=== PATIENT | male | born 1960 | race Caucasian/White ===

== ENCOUNTER → 2017-03-12 | Outpatient (CLI) | payer OTHER | END | disposition home or self-care (01) | LOC: MRI 10:37 | DX: M51.36 Other intervertebral disc degeneration, lumbar region (principal); M48.061 Spinal stenosis, lumbar region without neurogenic claudication; M54.16 Radiculopathy, lumbar region; M25.78 Osteophyte, vertebrae | CPT/HCPCS: 72148 ==

== ENCOUNTER 2017-05-04 14:47 | Emergency (ER) | payer OTHER ==
[2017-05-04 15:37] LABS: ADD MAN DIFF? NO
[2017-05-04] MEDS: ONDANSETRON ODT 4 MG TAB.RAPDIS. PO (15:38)
[2017-05-04] MEDS: oxyCODONE/APAP 10/325 1 TAB TABLET PO (15:38)
[2017-05-04 15:48] LABS: BASO # 0.1 x10^3/uL (0.0-0.2); BASO % 0 % (0-3); EOS # 0.1 x10^3/uL (0.0-0.7); EOS % 1 % (0-3); HEMOGLOBIN 13.7 g/dL (13.0-17.5); LYMPH # 3.2 x10^3/uL (1.0-4.8); LYMPH % 27 % (24-48); MEAN CORPUSCULAR HEMOGLOBIN 31 pg (25-35); MEAN CORPUSCULAR HGB CONC 34 g/dL (31-37); MEAN CORPUSCULAR VOLUME 90 fL (79-100); MONO # 0.9 x10^3/uL (0.0-1.1); MONO % 8 % (0-9); NEUT # 7.5 x10^3uL (1.8-7.7); NEUT % 64 % (31-73); PLATELET COUNT 271 x10^3/uL (140-400); RED BLOOD COUNT 4.43 x10^6/uL (4.30-5.70); RED CELL DISTRIBUTION WIDTH 12.4 % (11.5-14.5); WHITE BLOOD COUNT 11.7 x10^3/uL (4.0-11.0)
[2017-05-04 15:53] LABS: ANION GAP 13 (6-14); BILIRUBIN,URINE NEGATIVE (NEG); BLOOD UREA NITROGEN 25 mg/dL (8-26); BUN/CREATININE RATIO 23 (6-20); CALCIUM 9.2 mg/dL (8.5-10.1); CARBON DIOXIDE 27 mmol/L (21-32); CHLORIDE 102 mmol/L (98-107); CLARITY,URINE CLEAR; COLOR,URINE YELLOW; CREATININE 1.1 mg/dL (0.7-1.3); GFR 69.5; GLUCOSE 162 mg/dL (70-99); GLUCOSE,URINE NEGATIVE (NEG); NITRITE,URINE NEGATIVE (NEG); PH,URINE 5.5; POTASSIUM 4.3 mmol/L (3.5-5.1); PROTEIN,URINE NEGATIVE (NEG-TRACE); SODIUM 142 mmol/L (136-145); UROBILINOGEN,URINE 0.2 mg/dL (0.2 mg/dL)
[2017-05-04 16:00] LABS: ALBUMIN 3.3 g/dL (3.4-5.0); ALBUMIN/GLOBULIN RATIO 1.1 (1.0-1.7); ALK PHOS 44 U/L (46-116); ALT (SGPT) 29 U/L (16-63); AST (SGOT) 15 U/L (15-37); LIPASE 98 U/L (73-393); TOTAL BILIRUBIN 0.2 mg/dL (0.2-1.0); TOTAL PROTEIN 6.4 g/dL (6.4-8.2)
[2017-05-04 16:16] LABS: BACTERIA,URINE 0 /HPF (0-FEW); HYALINE CASTS, URINE FEW /HPF; RBC,URINE 0 /HPF (0-2); WBC,URINE 0 /HPF (0-4)
== END 2017-05-04 18:04 | disposition home or self-care (01) ==
LOC: ER 14:47
DX: R10.9 Unspecified abdominal pain (principal); G89.29 Other chronic pain; M54.6 Pain in thoracic spine; J45.909 Unspecified asthma, uncomplicated; E11.9 Type 2 diabetes mellitus without complications; J44.9 Chronic obstructive pulmonary disease, unspecified; Z87.442 Personal history of urinary calculi; Z98.84 Bariatric surgery status
CPT/HCPCS: 36415; 74176; 80053; 81001; 83690; 85025; 85379; 99285-25; Q0162

== ENCOUNTER → 2017-08-07 | Outpatient (CLI) | payer OTHER ==
[~2017-08-07] MED LIST: IOHEXOL 180 MG/ML 10 ML VIAL.; LIDOCAINE 1% PF 2 ML VIAL.; methylPREDNISolone ACETATE 40 MG/ML VIAL.
== END ==
LOC: PNCL 13:47
DX: M50.10 Cervical disc disorder with radiculopathy, unspecified cervical region (principal); M51.16 Intervertebral disc disorders with radiculopathy, lumbar region; M48.061 Spinal stenosis, lumbar region without neurogenic claudication; E11.9 Type 2 diabetes mellitus without complications; I10 Essential (primary) hypertension; J44.9 Chronic obstructive pulmonary disease, unspecified; M19.90 Unspecified osteoarthritis, unspecified site; G89.29 Other chronic pain; Z79.899 Other long term (current) drug therapy; Z98.84 Bariatric surgery status; Z90.49 Acquired absence of other specified parts of digestive tract; Z87.442 Personal history of urinary calculi; Z87.891 Personal history of nicotine dependence
CPT/HCPCS: 62321; J1030; Q9965

== ENCOUNTER → 2017-08-21 | Outpatient (CLI) | payer OTHER ==
[~2017-08-21] MED LIST changes: +methylPREDNISolone ACETATE 80 MG/ML VIAL.
== END | disposition home or self-care (01) ==
LOC: PNCL 09:14
DX: M50.123 Cervical disc disorder at C6-C7 level with radiculopathy (principal); M48.061 Spinal stenosis, lumbar region without neurogenic claudication; M51.16 Intervertebral disc disorders with radiculopathy, lumbar region
CPT/HCPCS: 62321; J1030; J1040; Q9965

== ENCOUNTER → 2017-09-04 | Outpatient (CLI) | payer OTHER | LOC: PNCL 09:04 | DX: M48.061 Spinal stenosis, lumbar region without neurogenic claudication (principal); M51.16 Intervertebral disc disorders with radiculopathy, lumbar region; M50.123 Cervical disc disorder at C6-C7 level with radiculopathy; J44.9 Chronic obstructive pulmonary disease, unspecified; I10 Essential (primary) hypertension; E11.9 Type 2 diabetes mellitus without complications; M19.90 Unspecified osteoarthritis, unspecified site; Z87.442 Personal history of urinary calculi; Z79.1 Long term (current) use of non-steroidal anti-inflammatories (NSAID); Z87.891 Personal history of nicotine dependence; Z98.84 Bariatric surgery status; Z90.49 Acquired absence of other specified parts of digestive tract; Z79.899 Other long term (current) drug therapy; Z79.51 Long term (current) use of inhaled steroids | CPT/HCPCS: 62323; J1030; J1040; Q9965 ==

== ENCOUNTER → 2017-09-11 | Outpatient (CLI) | payer OTHER | END | disposition home or self-care (01) | LOC: PNCL 10:54 | DX: M51.16 Intervertebral disc disorders with radiculopathy, lumbar region (principal); M48.02 Spinal stenosis, cervical region; M48.061 Spinal stenosis, lumbar region without neurogenic claudication | CPT/HCPCS: 99212 ==

== ENCOUNTER → 2017-09-25 | Outpatient (CLI) | payer OTHER | END | disposition home or self-care (01) | LOC: KCIC MRI 07:44 | DX: M51.16 Intervertebral disc disorders with radiculopathy, lumbar region (principal); M48.061 Spinal stenosis, lumbar region without neurogenic claudication; M50.122 Cervical disc disorder at C5-C6 level with radiculopathy; M48.02 Spinal stenosis, cervical region; Z79.899 Other long term (current) drug therapy; Z90.49 Acquired absence of other specified parts of digestive tract; I10 Essential (primary) hypertension; Z79.51 Long term (current) use of inhaled steroids; Z87.891 Personal history of nicotine dependence; Z87.442 Personal history of urinary calculi; E11.9 Type 2 diabetes mellitus without complications; Z98.84 Bariatric surgery status; J44.9 Chronic obstructive pulmonary disease, unspecified; Z79.1 Long term (current) use of non-steroidal anti-inflammatories (NSAID); M19.90 Unspecified osteoarthritis, unspecified site; Z79.84 Long term (current) use of oral hypoglycemic drugs | CPT/HCPCS: 72141; 72148 ==

== ENCOUNTER → 2017-10-15 | Outpatient (CLI) | payer OTHER ==
[2017-05-04 17:00] VITALS: BP 150/73
[~2017-10-15] MED LIST changes: +ACET-706 PO; +BUDE10.2 IH; +CALC-483 PO; +CELE200C PO; -IOHEXOL 180 MG/ML 10 ML VIAL.; -LIDOCAINE 1% PF 2 ML VIAL.; +LOSA1TAB25 PO; +METF500T5 PO; +PROAIR HFA8.5 GM INH; -methylPREDNISolone ACETATE 40 MG/ML VIAL.; -methylPREDNISolone ACETATE 80 MG/ML VIAL.
--- NOTE | 2017-10-15 21:58 | PAIN ---
DATE OF SERVICE: 10/15/2017 PROGRESS NOTE FOR PAIN CLINIC DIAGNOSES: 1. Cervical radiculopathy with cervical degenerative disk disease and cervical spinal stenosis. 2. Lumbar radiculopathy with lumbar degenerative disk disease and lumbar spinal stenosis. HISTORY OF PRESENT ILLNESS: The patient is a 57-year-old male who returns for followup status post lumbar epidural steroid injections as well as cervical epidural steroid injections with good initial results, but pain returning now significantly in the low back and right leg. The patient reports his neck is doing much better. He has had physical therapy recently, which did not help his back much with increasing radiating pain in the anterior lateral thigh, lateral anterior medial thigh and posterior gluteus on the right side. The patient reports he is becoming more weak. He has been stumbling with easy fatigability. The right leg is sharp, shooting pain, burning, constant, rated at 8 on a scale of 10 at its worst, 4 on average and 3 at its least. The patient did have MRI scan performed on 09/25/2017 showing circumferential disk bulge, L3-L4, left foraminal protrusion L4-L5 shows right foraminal disk protrusion, L5-S1 showing far right lateral disk protrusion as well with moderate bilateral neural foraminal stenosis at L4-L5 and L5-S1. The patient again has significantly increased pain and weakness in the right lower extremity. We tried gabapentin as well as Lyrica. He had significant side effects of each of these with intolerance to the medications, although the Lyrica did help slightly. PHYSICAL EXAMINATION: VITAL SIGNS: Today, the patient's blood pressure 143/109, pulse 101, respirations 20, temperature is 98.3 degrees Fahrenheit, height is 5 feet 7 inches, weight is 182 pounds. GENERAL: The patient is awake, alert, oriented, appropriate, very pleasant demeanor. HEENT: Head shows normocephalic, atraumatic. Extraocular movements intact and symmetrical. Oral cavity shows moist and pink. Dentition is intact. NECK: Shows anterior throat supple without palpable lymphadenopathy noted. Swallow reflex symmetrical. CHEST: Shows normal with inspection. Breath sounds clear to auscultation bilaterally. HEART: Shows S1, S2 clear. No murmurs auscultated. ABDOMEN: Soft, nontender, nondistended. No palpable organomegaly. There is no rebound or guarding demonstrated. BACK: Shows spine grossly in the midline. Cervical paraspinous muscle shows symmetrical on inspection, on palpation shows some mild tenderness only diffusely. The patient has full rotational motion of cervical spine both laterally as well as extension and flexion without difficulty. Lower back shows slight flattening of lumbar lordotic curvature. Lumbar paraspinous muscle shows symmetrical on inspection, with palpation shows some moderate tenderness in the inferior aspect of the lumbar paraspinous muscles bilaterally, but only in the inferior aspect. The patient has good rotational motion of lumbar spine without significant increase in pain. Good extension and forward flexion without difficulty. No tenderness over the sacrum or sacroiliac regions. EXTREMITIES: The patient's lower extremities show deep tendon reflexes 1+ in the patellar and tendo calcaneus tendons. Motor exam is approximately 4 on a scale of 5, but equal and symmetrical with dorsiflexion and extension bilaterally. Peripheral pulses are 1+ posterior tibial. Options were discussed with the patient. The patient's old chart was reviewed as his current medication regimen updated. Current review of systems updated today as well and we will recommend surgical evaluation. The patient's insurance will need preauthorization and clearance for surgical evaluation, but I feel that this would be the next step to get a surgical opinion to see if there is anything that can be performed with the L4-L5 and L5-S1 right-sided disk protrusions. If not a surgical candidate, may be a good candidate for spinal cord stimulator trial in the future as well. The patient was given a prescription for one-time fill for Tylenol No. 4 by his request. The patient was informed that this would not be refilled at this office and he understands. The patient was given instruction as well as side effects to be aware of with the medication. The patient is scheduled to see his primary physician in the next week. We will ask for recommendations on surgical evaluation regarding the patient's insurance providers who would be accepting it. IBETH PRYOR MD DR: TANIA/vivienne JOB#: [id number] / [id number] YESIAC Jurado MD
== END | disposition home or self-care (01) ==
LOC: PNCL 08:18
PROVIDERS: ATTEND Anesthesiology
DX: M50.10 Cervical disc disorder with radiculopathy, unspecified cervical region (principal); M48.02 Spinal stenosis, cervical region; M51.16 Intervertebral disc disorders with radiculopathy, lumbar region; M48.061 Spinal stenosis, lumbar region without neurogenic claudication; I10 Essential (primary) hypertension; E11.9 Type 2 diabetes mellitus without complications; J44.9 Chronic obstructive pulmonary disease, unspecified; Z87.891 Personal history of nicotine dependence; Z90.49 Acquired absence of other specified parts of digestive tract
CPT/HCPCS: 99212

== ENCOUNTER 2018-06-03 07:07 | Emergency (ER) | payer OTHER ==
[~2018-06-03] VITALS: Ht 167.6 cm; Wt 77.6 kg
[~2018-06-03 07:07] MED LIST changes: +ALBU2.5V8 INH; +METF500T16 PO; -METF500T5 PO; -PROAIR HFA8.5 GM INH
[2018-06-03] MEDS ORDERED: IV NORMAL SALINE 1000ML BAG 1,000 ML IV ONE (07:30)
[2018-06-03] MEDS ORDERED: METOCLOPRAMIDE HCL 10 MG/2 ML VIAL. IV ONE (07:45)
[2018-06-03] MEDS ORDERED: KETOROLAC 15 MG/ML VIAL. IV ONE (07:45)
[2018-06-03] MEDS ORDERED: IPRATRPIUM/ALBUTEROL 0.5/2.5MG 3 ML NEBU. NEB ONE (07:45)
--- NOTE | 2018-06-03 08:02 | PHYS DOC ---
Past Medical History Past Medical History: Asthma, COPD, Diabetes-Type II, Kidney Stone, Other Additional Past Medical Histor: DDD Past Surgical History: Cholecystectomy, Other Additional Past Surgical Histo: gastric bypass Smoking: Quit Greater Than 1 Year Alcohol Use: None Drug Use: None Adult General Chief Complaint Chief Complaint: FLANK PAIN HPI HPI Patient is a 58 year old male who presents with left flank pain. Patient states that he developed the pain around ten o'clock last night and it has been getting progressively worse since then. Patient states that he has a history of kidney stones and his current pain feels similar to the pain he has experienced with kidney stones in the past. Patient describes the pain as constant, intermittent in intensity, and stabbing in nature. Patient states that the pain is worse with standing and sitting and is mildly improved with laying down. Patient reports associated nausea for which he took a dose of Ondansetron last night with mild relief. Denies vomiting. Patient also reports a history of asthma and states that he is experiencing some chest tightness and wheezing this morning. Patient reports that this time of year is typical for his asthma to flare up. Review of Systems Review of Systems Constitutional: Denies fever or chills Eyes: Denies change in visual acuity or eye pain HENT: Denies nasal congestion or sore throat Respiratory: Denies cough. Reports wheezing. Cardiovascular: Reports chest tightness. Denies palpitations. GI: Denies abdominal pain vomiting, or diarrhea : Denies dysuria or hematuria Musculoskeletal: Denies joint pain. Reports chronic back pain. Integument: Denies rash or skin lesions Neurologic: Denies focal weakness or sensory changes Complete systems were reviewed and found to be within normal limits, except as documented in this note. Current Medications Current Medications Current Medications Medications (Trade) Dose Ordered Sig/Jesse Start Time Stop Time Status Last Admin Dose Admin Albuterol/ Ipratropium (Duoneb) 3 ml 1X ONCE 06/03/18 07:45 06/03/18 07:46 DC 06/03/18 08:30 3 ML Fentanyl Citrate (Fentanyl 2ml Vial) 50 mcg 1X ONCE 06/03/18 08:30 06/03/18 08:31 DC 06/03/18 09:20 50 MCG Ketorolac Tromethamine (Toradol 15mg Vial) 15 mg 1X ONCE 06/03/18 07:45 06/03/18 07:46 DC 06/03/18 08:06 15 MG Metoclopramide HCl (Reglan Vial) 10 mg 1X ONCE 06/03/18 07:45 06/03/18 07:46 DC 06/03/18 08:11 10 MG Sodium Chloride 1,000 ml @ 1,000 mls/hr 1X ONCE 06/03/18 07:30 06/03/18 08:29 DC 06/03/18 08:07 1,000 MLS/HR Allergies Allergies Allergies Coded Allergies Type Severity Reaction Last Updated Verified No Known Drug Allergies 10/24/15 No Physical Exam Physical Exam Constitutional: Well developed, well nourished, no acute distress, non-toxic appearance. HENT: Normocephalic, atraumatic, bilateral external ears normal, oropharynx moist, nose normal. Eyes: PERRLA, conjunctiva normal, no discharge. Neck: Normal range of motion, supple, no stridor. Cardiovascular:Heart rate regular rhythm, no murmur Lungs & Thorax: Mild diffuse wheezing throughout all lung astorga. No respiratory distress. Abdomen: Soft, no tenderness on palpation. Skin: Warm, dry, no rash. Back: No midline tenderness. Left CVA tenderness on palpation. Extremities: No tenderness, ROM intact, no edema of lower extremities. Neurologic: Alert and oriented X3, no focal deficits noted. Psychologic: Affect normal. Speech normal. Current Patient Data Vital Signs Vital Signs Date Time Temp Pulse Resp B/P (MAP) Pulse Ox O2 Delivery O2 Flow Rate FiO2 06/03/18 09:20 16 98 Room Air 06/03/18 09:15 72 112/58 (76) 06/03/18 07:09 98.0 98.0 Lab Values Laboratory Tests Test 06/03/18 07:25 White Blood Count 6.6 x10^3/uL (4.0-11.0) Red Blood Count 4.35 x10^6/uL (4.30-5.70) Hemoglobin 13.5 g/dL (13.0-17.5) Hematocrit 40.3 % (39.0-53.0) Mean Corpuscular Volume 93 fL (79-100) Mean Corpuscular Hemoglobin 31 pg (25-35) Mean Corpuscular Hemoglobin Concent 33 g/dL (31-37) Red Cell Distribution Width 13.8 % (11.5-14.5) Platelet Count 245 x10^3/uL (140-400) Neutrophils (%) (Auto) 48 % (31-73) Lymphocytes (%) (Auto) 38 % (24-48) Monocytes (%) (Auto) 10 % (0-9) H Eosinophils (%) (Auto) 4 % (0-3) H Basophils (%) (Auto) 0 % (0-3) Neutrophils # (Auto) 3.2 x10^3uL (1.8-7.7) Lymphocytes # (Auto) 2.5 x10^3/uL (1.0-4.8) Monocytes # (Auto) 0.6 x10^3/uL (0.0-1.1) Eosinophils # (Auto) 0.3 x10^3/uL (0.0-0.7) Basophils # (Auto) 0.0 x10^3/uL (0.0-0.2) Urine Collection Type Void Urine Color Yellow Urine Clarity Clear Urine pH 6.0 Urine Specific [place] 1.020 Urine Protein Negative mg/dL (NEG-TRACE) Urine Glucose (UA) Negative mg/dL (NEG) Urine Ketones (Stick) Negative mg/dL (NEG) Urine Blood Negative (NEG) Urine Nitrite Negative (NEG) Urine Bilirubin Negative (NEG) Urine Urobilinogen Dipstick 0.2 mg/dL (0.2 mg/dL) Urine Leukocyte Esterase Negative (NEG) Urine RBC Rare /HPF (0-2) Urine WBC Rare /HPF (0-4) Urine Squamous Epithelial Cells None /LPF Urine Bacteria Few /HPF (0-FEW) Urine Mucus Mod /LPF Sodium Level 141 mmol/L (136-145) Potassium Level 4.2 mmol/L (3.5-5.1) Chloride Level 105 mmol/L (98-107) Carbon Dioxide Level 28 mmol/L (21-32) Anion Gap 8 (6-14) Blood Urea Nitrogen 16 mg/dL (8-26) Creatinine 0.9 mg/dL (0.7-1.3) Estimated GFR (Cockcroft-Gault) 87.3 BUN/Creatinine Ratio 18 (6-20) Glucose Level 140 mg/dL (70-99) H Calcium Level 8.7 mg/dL (8.5-10.1) Magnesium Level 1.5 mg/dL (1.8-2.4) L Total Bilirubin 0.5 mg/dL (0.2-1.0) Aspartate Amino Transferase (AST) 18 U/L (15-37) Alanine Aminotransferase (ALT) 27 U/L (16-63) Alkaline Phosphatase 42 U/L (46-116) L Total Protein 6.3 g/dL (6.4-8.2) L Albumin 3.5 g/dL (3.4-5.0) Albumin/Globulin Ratio 1.3 (1.0-1.7) Lipase 149 U/L (73-393) Laboratory Tests 06/03/18 07:25 Laboratory Tests 06/03/18 07:25 EKG EKG [] Radiology/Procedures Radiology/Procedures PROCEDURE: CT ABDOMEN PELVIS WO CONTRAST Examination: CT ABDOMEN PELVIS WO CONTRAST History: L FLANK PAIN H/O STONES PRE SENT Comparison/Correlation: 05/04/2017 CT abdomen and pelvis without contrast Findings: Axial images of the abdomen and pelvis were obtained without contrast sagittal and coronal reformatted images provided. Visualized lung bases are clear. Suture material is noted involving the stomach. Cholecystectomy noted. Liver, spleen, pancreas, and adrenal glands are normal. Suture material involves left upper quadrant small bowel. No bowel obstruction or extraluminal gas. Appendix is normal. Diverticulosis is present. No ascites or pelvic free fluid. Bilateral perinephric stranding is again seen. No radiopaque collecting system calculi. Moderate L3-4 disc space narrowing is present. Spurring is noted. Small umbilical hernia contains omental fat. Urinary bladder is mostly decompressed. Impression: No radiopaque collecting system calculi or evidence of obstruction. Diverticulosis is present without findings of acute inflammation. PQRS Compliance Statement: One or more of the following individualized dose reduction techniques were utilized for this examination: 1. Automated exposure control 2. Adjustment of the mA and/or kV according to patient size 3. Use of iterative reconstruction technique Electronically signed by: Wing Hudson MD (06/03/2018 8:30 AM) [id number] Course & Med Decision Making Course & Med Decision Making Patient is a 58 year old male who presents for evaluation of flank pain. Patient treated with a duoneb, fluids, Ketorolac, and Reglan in the ED. Pertinent Labs and Imaging studies reviewed. (See chart for details). CT abdomen /pelvis is negative for stone. Patient denies pleuritic pain and calf tenderness. Patient is not tachycardic. No swelling of the lower extremities are noted on physical exam. On reexamination patient is feeling better. Patient stable for discharge with outpatient follow-up with PCP. Discussed findings and plan with patient and family, who acknowledge understanding and agreement. Dragon Disclaimer Dragon Disclaimer This electronic medical record was generated, in whole or in part, using a voice recognition dictation system. Departure Departure Impression: Primary Impression: Left flank pain Disposition: 01 HOME, SELF-CARE Condition: STABLE Referrals: YESICA JANSEN MD (PCP) Patient Instructions: Flank Pain, [id number] TONI QUESADA DO Jun 03, 2018 08:02
[2018-06-03 08:04] LABS: BASO % 0 % (0-3); EOS # 0.3 x10^3/uL (0.0-0.7); EOS % 4 % (0-3); HEMATOCRIT 40.3 % (39.0-53.0); HEMOGLOBIN 13.5 g/dL (13.0-17.5); LYMPH # 2.5 x10^3/uL (1.0-4.8); LYMPH % 38 % (24-48); MEAN CORPUSCULAR HEMOGLOBIN 31 pg (25-35); MEAN CORPUSCULAR HGB CONC 33 g/dL (31-37); MEAN CORPUSCULAR VOLUME 93 fL (79-100); MONO # 0.6 x10^3/uL (0.0-1.1); MONO % 10 % (0-9); NEUT # 3.2 x10^3uL (1.8-7.7); NEUT % 48 % (31-73); PLATELET COUNT 245 x10^3/uL (140-400); RED BLOOD COUNT 4.35 x10^6/uL (4.30-5.70); RED CELL DISTRIBUTION WIDTH 13.8 % (11.5-14.5); WHITE BLOOD COUNT 6.6 x10^3/uL (4.0-11.0)
[2018-06-03 08:16] LABS: BILIRUBIN,URINE NEGATIVE (NEG); CLARITY,URINE CLEAR; COLOR,URINE YELLOW; NITRITE,URINE NEGATIVE (NEG); PROTEIN,URINE NEGATIVE (NEG-TRACE); UROBILINOGEN,URINE 0.2 mg/dL (0.2 mg/dL)
[2018-06-03 08:20] LABS: CALCIUM 8.7 mg/dL (8.5-10.1); CREATININE 0.9 mg/dL (0.7-1.3); GFR 87.3; POTASSIUM 4.2 mmol/L (3.5-5.1)
[2018-06-03 08:26] LABS: ALBUMIN 3.5 g/dL (3.4-5.0); ALBUMIN/GLOBULIN RATIO 1.3 (1.0-1.7); MAGNESIUM 1.5 mg/dL (1.8-2.4); TOTAL BILIRUBIN 0.5 mg/dL (0.2-1.0); TOTAL PROTEIN 6.3 g/dL (6.4-8.2)
[2018-06-03] MEDS ORDERED: fentaNYL PF VIAL 100 MCG/2 ML VIAL IV ONE (08:30)
[2018-06-03 08:33] LABS: BACTERIA,URINE FEW /HPF (0-FEW); RBC,URINE RARE /HPF (0-2); WBC,URINE RARE /HPF (0-4)
--- NOTE | 2018-06-03 08:33 | RAD ---
Examination: CT ABDOMEN PELVIS WO CONTRAST History: L FLANK PAIN H/O STONES PRE SENT Comparison/Correlation: 05/04/2017 CT abdomen and pelvis without contrast Findings: Axial images of the abdomen and pelvis were obtained without contrast sagittal and coronal reformatted images provided. Visualized lung bases are clear. Suture material is noted involving the stomach. Cholecystectomy noted. Liver, spleen, pancreas, and adrenal glands are normal. Suture material involves left upper quadrant small bowel. No bowel obstruction or extraluminal gas. Appendix is normal. Diverticulosis is present. No ascites or pelvic free fluid. Bilateral perinephric stranding is again seen. No radiopaque collecting system calculi. Moderate L3-4 disc space narrowing is present. Spurring is noted. Small umbilical hernia contains omental fat. Urinary bladder is mostly decompressed. Impression: No radiopaque collecting system calculi or evidence of obstruction. Diverticulosis is present without findings of acute inflammation. PQRS Compliance Statement: One or more of the following individualized dose reduction techniques were utilized for this examination: 1. Automated exposure control 2. Adjustment of the mA and/or kV according to patient size 3. Use of iterative reconstruction technique Electronically signed by: Wing Hudson MD (06/03/2018 8:30 AM) [id number]
[2018-06-03 09:15] VITALS: BP 112/58
== END 2018-06-03 09:46 | disposition home or self-care (01) ==
LOC: ER 07:07
DX: R10.32 Left lower quadrant pain (principal); R07.89 Other chest pain; R06.2 Wheezing; G89.29 Other chronic pain; M54.9 Dorsalgia, unspecified; J44.9 Chronic obstructive pulmonary disease, unspecified; E11.9 Type 2 diabetes mellitus without complications; Z90.49 Acquired absence of other specified parts of digestive tract; Z87.891 Personal history of nicotine dependence; Z87.442 Personal history of urinary calculi
CPT/HCPCS: 36415; 74176; 80053; 81001; 83690; 83735; 85025; 94640; 96374; 96375; 99285; J1885; J2765; J3010; J7030; J7620